=== PATIENT | male | born 1960 | race Caucasian/White ===

== ENCOUNTER 2020-03-30 05:52 | Day surgery (SDC) | payer OTHER ==
[~2020-03-30] VITALS: Ht 175.3 cm; Wt 79.5 kg
[~2020-03-30 05:52] MED LIST: SODIUM CHLORIDE 0.9% 1,000 ML IV ONE; SODIUM CHLORIDE 0.9% 1,000 ML ONE
[2020-03-30] MEDS ORDERED: LIDOCAINE 4% 50 ML SOLUTION TP ONE (05:53)
[2020-03-30] MEDS ORDERED: BENZOCAINE 20% 50 MCG/SPRAY 57 GM TP ONE (05:53)
[2020-03-30] MEDS ORDERED: ALBUTEROL SULFATE 2.5 MG/0.5 ML NEB SOLUTION NEB ONE (05:53)
[2020-03-30] MEDS ORDERED: LIDOCAINE 2% 30 ML JELLY TP ONE (05:53)
[2020-03-30 06:44] LABS: GLUCOMETER DEV NAME(LOC) SDS.; GLUCOSE,POINT OF CARE 146 MG/DL (70-110)
[2020-03-30] MEDS ORDERED: LISI-661 PO (06:56)
[2020-03-30] MEDS ORDERED: LEVO88TA4 PO (06:56)
[2020-03-30] MEDS ORDERED: MONT10TA21 PO (06:56)
[2020-03-30] MEDS ORDERED: ASPI-728 PO (06:56)
[2020-03-30] MEDS ORDERED: EMPA10TA PO (06:56)
[2020-03-30] MEDS ORDERED: ATOR40TA28 PO (06:56)
[2020-03-30] MEDS ORDERED: PIME30CR6 TP (06:56)
[2020-03-30] MEDS ORDERED: METF-960 PO (06:56)
[2020-03-30] MEDS ORDERED: CHOL100018 PO (06:56)
[2020-03-30] MEDS ORDERED: CETI-450 PO (06:56)
[2020-03-30] MEDS ORDERED: CARV3 PO (06:56)
[2020-03-30] MEDS ORDERED: TEST200V21 IJ (06:56)
[2020-03-30] MEDS ORDERED: TIOT185 IH (06:56)
[2020-03-30] MEDS ORDERED: FLUT16H NASAL (06:56)
[2020-03-30] MEDS ORDERED: MIDAZOLAM HCL 2 MG/2 ML VIAL ONE (07:55)
[2020-03-30] MEDS ORDERED: FentaNYL CITRATE-PF 100 MCG/2 ML VIAL ONE (07:56)
[2020-03-30] MEDS ORDERED: MethylPREDNISolone SOD SUCC 125 MG/2 ML VIAL ONE (08:45)
[2020-03-30] MEDS ORDERED: MethylPREDNISolone SOD SUCC 125 MG/2 ML VIAL IVP ONE (08:45)
[2020-03-30] MEDS ORDERED: OXYGEN THERAPY IH SCH (20:00)
== END 2020-03-30 09:55 | disposition home or self-care (01) ==
LOC: SURGERY 05:52
PROVIDERS: ATTEND Internal Medicine Critical Care Medicine
DX: J38.4 Edema of larynx (principal); B37.0 Candidal stomatitis; G47.30 Sleep apnea, unspecified; I10 Essential (primary) hypertension; E78.5 Hyperlipidemia, unspecified; I25.10 Atherosclerotic heart disease of native coronary artery without angina pectoris; Z79.899 Other long term (current) drug therapy
CPT/HCPCS: 31623; 31624; 71045; 82962; 87015; 87070; 87101; 87205; 87206; 87220; 87635; 88108; 88312; 93005; J2250; J2930; J3010; J7030; J7613; Z7610